=== PATIENT | male | born 1930 | race Caucasian/White ===

== ENCOUNTER 2017-02-01 18:31 | Outpatient (CLI) | payer MEDICARE, OTHER | END 2017-02-01 18:32 | disposition critical access hospital (66) | DX: R53.1 Weakness (principal) | CPT/HCPCS: A0425; A0429 ==

== ENCOUNTER 2017-02-01 18:55 | Emergency (ER) | payer MEDICARE, OTHER ==
[2017-02-01] MEDS ORDERED: AZITHROMYCIN 250 MG TABLET PO STA (21:12)
[2017-02-01] MEDS ORDERED: AZITHROMYCIN 250 MG TABLET PO ONE (21:19)
== END 2017-02-01 21:45 | disposition home or self-care (01) ==
DX: J18.9 Pneumonia, unspecified organism (principal); J32.0 Chronic maxillary sinusitis; R01.1 Cardiac murmur, unspecified; G20 Parkinson's disease; I10 Essential (primary) hypertension; Z86.73 Personal history of transient ischemic attack (TIA), and cerebral infarction without residual deficits; Z79.82 Long term (current) use of aspirin
CPT/HCPCS: 36415; 70450; 71020; 80053; 81003; 83690; 85025; 99284; A9270

== ENCOUNTER 2018-01-03 11:02 | Outpatient (CLI) | payer MEDICARE, OTHER | END 2018-01-03 11:03 | disposition critical access hospital (66) | LOC: EMS 11:02 | PROVIDERS: ATTEND Surgery | DX: R53.1 Weakness (principal) | CPT/HCPCS: A0425; A0429 ==

== ENCOUNTER 2018-01-03 11:21 | Emergency (ER) | payer MEDICARE, OTHER ==
--- NOTE | 2018-01-03 12:12 | ED Physician Documentation ---
PD HPI URI - Stated complaint Stated Complaint: WEAKNESS - Chief complaint Chief Complaint: General - History obtained from History obtained from: Patient, Family () - History of Present Illness Timing - onset: Today Timing duration: Hours Timing details: Gradual onset (he felt generally weaker when awoke today and unable to get himself out of bed. He says this will happen sometimes and then improves over an hour or two. Not feeling better through morning today. Has had senior care cough which is increased some for 1-2 weeks. No fevers. No chest pain. 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 No: Fever, Nasal congestion, Rhinorrhea, Swollen nodes, Chest pain, Dyspnea, NVD , Bilateral edema Contributing factors: No: Sick contact, Travel, COPD / asthma Improves by: Rest Similar symptoms before: No diagnosis Recently seen: Not recently seen Review of Systems Constitutional: reports: Chills, Fatigue. denies: Fever, Myalgias Nose: denies: Rhinorrhea / runny nose, Congestion Throat: denies: Sore throat Cardiac: denies: Chest pain / pressure, Palpitations, Pedal edema, Calf pain Respiratory: reports: Cough. denies: Dyspnea, Wheezing GI: denies: Abdominal Pain, Nausea, Vomiting, Diarrhea : denies: Dysuria, Frequency Skin: denies: Rash, Lesions Neurologic: reports: Generalized weakness. denies: Focal weakness, Numbness, Near syncope, Altered mental status, Headache Endocrine: reports: Weight loss. denies: Weight gain Immunocompromised: denies: Immunocompromised PD PAST MEDICAL HISTORY - Past Medical History Cardiovascular: Hypertension Respiratory: None Neuro: CVA Endocrine/Autoimmune: None GI: None : Benign prostate hypertrophy, Incontinence HEENT: None Psych: None Musculoskeletal: Osteoarthritis, Chronic back pain Derm: None - Past Surgical History Past Surgical History: No - Present Medications Home Medications: Ambulatory Orders Medication Instructions Recorded Confirmed Aspirin EC [Ecotrin] 325 mg PO DAILY 04/29/15 02/01/17 Azithromycin [Zithromax] 250 mg PO DAILY #4 tablet 02/01/17 Metoprolol Tartrate [Metoprolol 25 mg PO DAILY 02/01/17 02/01/17 Tartrate] Tamsulosin [Flomax] 0.4 mg PO DAILY 02/01/17 02/01/17 Dexamethasone [Decadron] 4 mg PO DAILY #5 tablet 01/03/18 Doxycycline Monohydrate 100 mg PO BID #14 tablet 01/03/18 - Allergies Allergies/Adverse Reactions: Allergies Allergy/AdvReac Type Severity Reaction Status Date / Time No Known Drug Allergies Allergy Verified 02/01/17 19:12 - Living Situation Living Situation: reports: With spouse/s.o. Living Arrangement: reports: At home - Social History Does the pt smoke?: No Smoking Status: Never smoker Does the pt drink ETOH?: No Does the pt have substance abuse?: No - Family History Family history: reports: Non contributory - Immunizations Immunizations are current?: Yes - POLST Patient has POLST: No PD ED PE NORMAL - Vitals Vital signs reviewed: Yes - General General: Alert and oriented X 3, No acute distress, Well developed/nourished, Other (generally frail appearance but bright and alert) - HEENT HEENT: Ears normal, Moist mucous membranes, Pharynx benign - Neck Neck: Supple, no meningeal sign, No adenopathy - Cardiac Cardiac: RRR, Other (murmur noted left chest, does not go to carotids. ) - Respiratory Respiratory: No: Clear bilaterally (slight congestion/wheezing noted left side. Wet cough intermittently. ) - Abdomen Abdomen: Soft, Non tender - Back Back: No CVA TTP - Derm Derm: Normal color, Warm and dry - Extremities Extremities: No tenderness to palpate, Normal ROM s pain, No edema, No calf tenderness / cord - Neuro Neuro: Alert and oriented X 3, it technician 2-12 intact, No motor deficit (mild shakiness noted with arms raising), No sensory deficit, Normal speech Eye Opening: Spontaneous Motor: Obeys Commands Verbal: Oriented GCS Score: 15 Results - Vitals Vitals: Vital Signs - 24 hr 01/03/18 01/03/18 01/03/18 11:25 13:05 15:50 Temperature 37.5 C Heart Rate 95 92 92 Respiratory 20 14 20 Rate Blood Pressure 166/74 H 151/82 H 151/78 H O2 Saturation 100 96 95 Oxygen O2 Source Room air - Labs Labs: Laboratory Tests 01/03/18 01/03/18 01/03/18 11:38 11:38 11:38 WBC 17.8 H RBC 4.47 L Hgb 13.3 L Hct 39.4 L MCV 88.2 MCH 29.6 MCHC 33.6 RDW 13.3 Plt Count 141 MPV 9.0 Neut # 16.5 H Lymph # 0.4 L [place] # 0.8 Eos # 0.0 Baso # 0.1 Absolute Nucleated RBC 0.00 Nucleated RBC % 0.0 Sodium 137 Potassium 4.1 Chloride 102 Carbon Dioxide 26 Anion Gap 9.0 BUN 21 H Creatinine 0.9 Estimated GFR (MDRD) 80 L Glucose 110 H Lactic Acid Calcium 9.1 Magnesium 1.8 Total Bilirubin 1.3 H AST 20 ALT < 10 L Alkaline Phosphatase 53 Troponin I 0.04 B-Natriuretic Peptide Total Protein 7.2 Albumin 4.1 Globulin 3.1 Albumin/Globulin Ratio 1.3 Lipase 12 L Urine Color Urine Clarity Urine pH Ur Specific [place] Urine Protein Urine Glucose (UA) Urine Ketones Urine Occult Blood Urine Nitrite Urine Bilirubin Urine Urobilinogen Ur Leukocyte Esterase Ur Microscopic Review Urine Culture Comments 01/03/18 01/03/18 01/03/18 11:38 11:38 11:38 WBC RBC Hgb Hct MCV MCH MCHC RDW Plt Count MPV Neut # Lymph # [place] # Eos # Baso # Absolute Nucleated RBC Nucleated RBC % Sodium Potassium Chloride Carbon Dioxide Anion Gap BUN Creatinine Estimated GFR (MDRD) Glucose Lactic Acid 1.0 Calcium Magnesium Total Bilirubin AST ALT Alkaline Phosphatase Troponin I B-Natriuretic Peptide 211 H Total Protein Albumin Globulin Albumin/Globulin Ratio Lipase Urine Color YELLOW Urine Clarity CLEAR Urine pH 6.5 Ur Specific [place] 1.020 Urine Protein NEGATIVE Urine Glucose (UA) NEGATIVE Urine Ketones TRACE Urine Occult Blood NEGATIVE Urine Nitrite NEGATIVE Urine Bilirubin NEGATIVE Urine Urobilinogen 0.2 (NORMAL) Ur Leukocyte Esterase NEGATIVE Ur Microscopic Review NOT INDICATED Urine Culture Comments NOT INDICATED - Rads (name of study) chest Radiology: Prelim report reviewed (lingular infiltrate c/w mild pneumonia) PD MEDICAL DECISION MAKING - ED course Complexity details: re-evaluated patient (he is able to ambulate with walker in ED without needing assistance. Presume he can be at home and he feels able to do usual mobility at this time. Sats are good, elevated WBC bu vitals otherwise good. Does not meet hospitalization criteria. ), considered differential, d/w patient, d/w family () Departure - Departure Disposition: 01 Home, Self Care Clinical Impression: Cough, Weakness Pneumonia Qualifiers: Pneumonia type: due to unspecified organism Laterality: left Lung location: unspecified part of lung Qualified Code(s): J18.9 - Pneumonia, unspecified organism Condition: Stable Record reviewed to determine appropriate education?: Yes Instructions: ED Pneumonia Adult Follow-Up: Angel Callejas MD [Primary Care Provider] - Prescriptions: Dexamethasone [Decadron] 4 mg PO DAILY #5 tablet Doxycycline Monohydrate 100 mg PO BID #14 tablet Comments: Drink lots of fluids. Regular medications. Your x-ray does show a possible small pneumonia on one side. Your white count is a little bit elevated to go along with infection. This could be making you feel weaker. Will give her some antibiotics and an anti-inflammatory doxycycline and Decadron as directed. Recheck if worsening symptoms or other problems develop. Discharge Date/Time: 01/03/18 18:08
[2018-01-03] MEDS ORDERED: SODIUM CHLORIDE 0.9% 1,000 ML IV ONE (12:29)
[2018-01-03 12:35] LABS: BASOPHILS # (AUTO) 0.1 10^3/uL (0.0-0.1); BASOPHILS % (AUTO) 0.4 %; EOSINOPHILS % (AUTO) 0.1 %; HGB - HEMOGLOBIN 13.3 g/dL (14.0-18.0); LYMPHOCYTES # (AUTO) 0.4 10^3/uL (1.5-3.5); LYMPHOCYTES % (AUTO) 2.5 %; MEAN CORPUSCULAR HEMOGLOBIN 29.6 pg (27.0-31.0); MEAN CORPUSCULAR HGB CONC 33.6 g/dL (32.0-36.0); MEAN CORPUSCULAR VOLUME 88.2 fL (80.0-94.0); MONOCYTES # (AUTO) 0.8 10^3/uL (0.0-1.0); MONOCYTES % (AUTO) 4.7 %; NEUTROPHILS # (AUTO) 16.5 10^3/uL (1.5-6.6); NEUTROPHILS % (AUTO) 92.3 %; PLT - PLATELET COUNT 141 10^3/uL (130-450); RED BLOOD COUNT 4.47 10^6/uL (4.70-6.10); RED CELL DISTRIBUTION WIDTH 13.3 % (12.0-15.0); WHITE BLOOD COUNT 17.8 x10^3/uL (4.8-10.8)
[2018-01-03 12:45] LABS: BILIRUBIN,URINE NEGATIVE (NEGATIVE); GLUCOSE, URINE (UA) NEGATIVE (NEGATIVE); KETONES,URINE (UA) TRACE mg/dL (NEGATIVE); LEUKOCYTE ESTERASE, URINE NEGATIVE (NEGATIVE); NITRITE,URINE NEGATIVE (NEGATIVE); OCCULT BLOOD,URINE NEGATIVE (NEGATIVE); PH,URINE 6.5 PH (5.0-7.5); PROTEIN,URINE NEGATIVE (NEGATIVE); UROBILINOGEN,URINE 0.2 (NORMAL) E.U./dL (NORMAL)
[2018-01-03 12:46] LABS: ALBUMIN 4.1 g/dL (3.2-5.5); ALBUMIN/GLOBULIN RATIO 1.3 (1.0-2.2); ALKALINE PHOSPHATASE 53 IU/L (42-121); ALT ALANINE AMINOTRANSFERASE < 10 IU/L (10-60); AST ASPARTATE AMINOTRANSFERASE 20 IU/L (10-42); BILIRUBIN,TOTAL 1.3 mg/dL (0.2-1.0); BUN - BLOOD UREA NITROGEN 21 mg/dL (6-20); CALCIUM 9.1 mg/dL (8.5-10.3); CARBON DIOXIDE - CO2 26 mmol/L (21-32); CHLORIDE 102 mmol/L (101-111); CLARITY,URINE CLEAR (CLEAR); CREATININE 0.9 mg/dL (0.6-1.2); GFR - MDRD 80 (>89); GLUCOSE 110 mg/dL (70-100); LIPASE 12 U/L (22-51); MAGNESIUM 1.8 mg/dL (1.7-2.8); SODIUM 137 mmol/L (135-145); TOTAL PROTEIN 7.2 g/dL (6.7-8.2)
--- NOTE | 2018-01-03 13:05 | XRAY Report ---
EXAM: CHEST RADIOGRAPHY EXAM DATE: 01/03/2018 12:46 PM. CLINICAL HISTORY: Cough and weakness. COMPARISON: 02/01/2017. TECHNIQUE: 2 views. FINDINGS: Lungs/Pleura: Mild lingular/left lower lobe opacity may reflect atelectasis or infiltrate. This is si milar to prior. No new pulmonary opacity. No pleural effusion or pneumothorax are evident. Mediastinum: Heart and mediastinal contours are unremarkable. Other: None. IMPRESSION: Mild lingular/left lower lobe opacity may reflect atelectasis or infiltrate. [facility] Referring Provider Line: [phone] SITE ID: [id number]
[2018-01-03] MEDS ORDERED: DEXAMETHASONE 10 MG/ML VIAL IVP STA (13:23)
[2018-01-03] MEDS ORDERED: DOXYCYCLINE 100 MG TABLET PO STA (13:23)
[2018-01-03 15:50] VITALS: BP 151/78
== END 2018-01-03 18:08 | disposition home or self-care (01) ==
LOC: EDUNIT# → ED 11:21
DX: R05 Cough (principal); R53.1 Weakness; J18.9 Pneumonia, unspecified organism; R94.31 Abnormal electrocardiogram [ECG] [EKG]; Z79.82 Long term (current) use of aspirin; Z86.73 Personal history of transient ischemic attack (TIA), and cerebral infarction without residual deficits
CPT/HCPCS: 36415; 71046; 80053; 81003; 83605; 83690; 83735; 83880; 84484; 85025; 93005; 96361; 96374; 99284; A9270; 81001; 87086

== ENCOUNTER 2018-02-21 09:35 | Outpatient (CLI) | payer MEDICARE, OTHER | END 2018-02-21 09:36 | disposition EMS.NT | LOC: EMS 09:35 | PROVIDERS: ATTEND Surgery | DX: S01.01XA Laceration without foreign body of scalp, initial encounter (principal); W01.0XXA Fall on same level from slipping, tripping and stumbling without subsequent striking against object, initial encounter; Y92.009 Unspecified place in unspecified non-institutional (private) residence as the place of occurrence of the external cause ==

== ENCOUNTER 2018-05-10 13:18 | Outpatient (CLI) | payer MEDICARE, OTHER ==
--- NOTE | 2018-05-10 14:53 | XRAY Report ---
Procedure Date: 05/10/2018 Accession Number: [id number] / [id number] Procedure: FL - Modified Barium Swallow W/SP CPT Code: FULL RESULT: EXAM: Modified Barium Swallow W/SP DATE: 05/10/2018 1:53 PM CLINICAL HISTORY: DYSPHAGIA, MOVEMENT DISORDER COMPARISON: None. TECHNIQUE: Under the direction of speech pathology, patient swallowed various consistencies of barium under lateral fluoroscopic observation of the neck. Fluoroscopic exposure time: 3 minutes 46 seconds. Number of fluoroscopic images: 0. 5 series of [place] fluoroscopy recorded. FINDINGS: Airway Protection: Hesitant epiglottic motion. No episodes of tracheal penetration or aspiration with all consistencies of barium. Other: None. Please also refer to full report from Speech Pathology. IMPRESSION: Hesitation without aspiration or penetration. [facility]
== END 2018-05-10 13:19 | disposition home or self-care (01) ==
LOC: DI 13:18
PROVIDERS: ATTEND Family Medicine
DX: R13.10 Dysphagia, unspecified (principal)
CPT/HCPCS: 74230; 92611; G8996; G8997; G8998

== ENCOUNTER 2018-05-24 15:20 | Outpatient (CLI) | payer MEDICARE, OTHER ==
[2018-05-24 18:59] LABS: BASOPHILS # (AUTO) 0.1 10^3/uL (0.0-0.1); BASOPHILS % (AUTO) 0.9 %; EOSINOPHILS # (AUTO) 0.2 10^3/uL (0.0-0.7); EOSINOPHILS % (AUTO) 2.1 %; HGB - HEMOGLOBIN 13.2 g/dL (14.0-18.0); LYMPHOCYTES # (AUTO) 1.3 10^3/uL (1.5-3.5); LYMPHOCYTES % (AUTO) 14.1 %; MEAN CORPUSCULAR HEMOGLOBIN 30.2 pg (27.0-31.0); MEAN CORPUSCULAR HGB CONC 32.4 g/dL (32.0-36.0); MEAN CORPUSCULAR VOLUME 93.4 fL (80.0-94.0); MEAN PLATELET VOLUME 9.3 fL (7.4-11.4); MONOCYTES # (AUTO) 0.8 10^3/uL (0.0-1.0); MONOCYTES % (AUTO) 8.8 %; NEUTROPHILS # (AUTO) 6.7 10^3/uL (1.5-6.6); NEUTROPHILS % (AUTO) 74.1 %; PLT - PLATELET COUNT 176 10^3/uL (130-450); RED BLOOD COUNT 4.36 10^6/uL (4.70-6.10); RED CELL DISTRIBUTION WIDTH 13.3 % (12.0-15.0); WHITE BLOOD COUNT 9.1 x10^3/uL (4.8-10.8)
[2018-05-24 19:14] LABS: ALBUMIN 3.9 g/dL (3.2-5.5); ALKALINE PHOSPHATASE 61 IU/L (42-121); ALT ALANINE AMINOTRANSFERASE 10 IU/L (10-60); AST ASPARTATE AMINOTRANSFERASE 15 IU/L (10-42); BILIRUBIN,TOTAL 1.3 mg/dL (0.2-1.0); BUN - BLOOD UREA NITROGEN 16 mg/dL (6-20); CALCIUM 9.2 mg/dL (8.5-10.3); CARBON DIOXIDE - CO2 30 mmol/L (21-32); CHLORIDE 101 mmol/L (101-111); CHOL/HDL RATIO 4.1 (<5.0); CHOLESTEROL 191 mg/dL; GFR - MDRD 71 (>89); GLUCOSE 93 mg/dL (70-100); HDL CHOLESTEROL 47 mg/dL; LDL CHOLESTEROL,CALCULATED 126 mg/dL; LDL/HDL RATIO 2.7 (<3.6); SODIUM 137 mmol/L (135-145); TOTAL PROTEIN 7.7 g/dL (6.7-8.2); VLDL CHOLESTEROL 18 mg/dL
== END 2018-05-24 15:21 ==
LOC: LAB.WCP 15:20
PROVIDERS: ATTEND Family Medicine
DX: I10 Essential (primary) hypertension (principal); I25.10 Atherosclerotic heart disease of native coronary artery without angina pectoris; I63.9 Cerebral infarction, unspecified; E78.5 Hyperlipidemia, unspecified
CPT/HCPCS: 36415; 80053; 80061; 83721; 84443; 85025

== ENCOUNTER 2018-08-04 11:39 | Outpatient (CLI) | payer MEDICARE, OTHER | END 2018-08-04 11:40 | disposition critical access hospital (66) | LOC: EMS 11:39 | PROVIDERS: ATTEND Surgery | DX: M25.512 Pain in left shoulder (principal); W19.XXXA Unspecified fall, initial encounter | CPT/HCPCS: A0425; A0429 ==

== ENCOUNTER 2018-08-04 12:04 | Emergency (ER) | payer MEDICARE, OTHER ==
--- NOTE | 2018-08-04 14:06 | ED Physician Documentation ---
PD HPI UPPER EXT INJURY - Stated complaint Stated Complaint: L SHOULDER PAIN / GLF 2 DAYS AGO - Chief complaint Chief Complaint: Trauma Ext - History obtained from History obtained from: Patient - History of Present Illness Location: Left, Clavicle, Shoulder Type of injury: Fall Where injury occurred: Home Timing - onset: Today Timing - details: Abrupt onset Worsened by: Moving, Palpating Associated symptoms: No: Weakness, Numbness, Swelling Contributing factors: No: Anticoagulated Similar symptoms before: Has not had sx before Recently seen: Not recently seen Review of Systems Cardiac: denies: Chest pain / pressure GI: denies: Abdominal Pain Skin: denies: Abrasion (s), Laceration (s) Musculoskeletal: reports: Joint pain (right shoulder) Neurologic: denies: Focal weakness, Numbness, Altered mental status, Headache, Head injury PD PAST MEDICAL HISTORY - Past Medical History Past Medical History: Yes Cardiovascular: Hypertension Respiratory: None Neuro: Parkinson's Endocrine/Autoimmune: None GI: None : Benign prostate hypertrophy, Incontinence HEENT: None Psych: None Musculoskeletal: Osteoarthritis, Chronic back pain Derm: None - Past Surgical History Past Surgical History: Yes HEENT: Cataracts - Present Medications Home Medications: Ambulatory Orders Medication Instructions Recorded Confirmed Aspirin EC [Ecotrin] 325 mg PO DAILY 04/29/15 02/01/17 Azithromycin [Zithromax] 250 mg PO DAILY #4 tablet 02/01/17 Metoprolol Tartrate 25 mg PO DAILY 02/01/17 02/01/17 Tamsulosin [Flomax] 0.4 mg PO DAILY 02/01/17 02/01/17 Dexamethasone [Decadron] 4 mg PO DAILY #5 tablet 01/03/18 Doxycycline Monohydrate 100 mg PO BID #14 tablet 01/03/18 - Allergies Allergies/Adverse Reactions: Allergies Allergy/AdvReac Type Severity Reaction Status Date / Time No Known Drug Allergies Allergy Verified 02/01/17 19:12 - Social History Does the pt smoke?: No Smoking Status: Never smoker Does the pt drink ETOH?: No Does the pt have substance abuse?: No - Immunizations Immunizations are current?: No - POLST Patient has POLST: No PD ED PE NORMAL - Vitals Vital signs reviewed: Yes - General General: Alert and oriented X 3, Well developed/nourished, Other (not much pain if arm held still. ) - HEENT HEENT: Atraumatic - Neck Neck: Supple, no meningeal sign, No bony TTP, No adenopathy - Cardiac Cardiac: RRR, No murmur - Respiratory Respiratory: Clear bilaterally - Abdomen Abdomen: Soft, Non tender - Derm Derm: Normal color, Warm and dry - Extremities Extremities: Other (right shoulder tender at proximal humerus. Clavicle not tender. No dislocation. ) - Neuro Neuro: Alert and oriented X 3, No motor deficit, No sensory deficit, Normal speech Results - Vitals Vitals: Vital Signs - 24 hr 08/04/18 08/04/18 12:09 13:00 Temperature 36.1 C L Heart Rate 99 91 Respiratory 16 Rate Blood Pressure 140/72 H 130/80 O2 Saturation 98 97 Oxygen O2 Source Room air - Rads (name of study) right shoulder Radiology: Prelim report reviewed (impacted humeral neck. ) PD MEDICAL DECISION MAKING - ED course Complexity details: reviewed results, re-evaluated patient (he is able to ambulate and get around one handed (does not use walker). ), considered differential, d/w patient Departure - Departure Disposition: 01 Home, Self Care Clinical Impression: Fall from slip, trip, or stumble Qualifiers: Encounter type: initial encounter Qualified Code(s): W01.0XXA - Fall on same level from slipping, tripping and stumbling without subsequent striking against object, initial encounter Fracture of neck of humerus Qualifiers: Encounter type: initial encounter Fracture type: closed Laterality: left Qualified Code(s): S42.212A - Unspecified displaced fracture of surgical neck of left humerus, initial encounter for closed fracture Condition: Stable Record reviewed to determine appropriate education?: Yes Instructions: ED Fx Shoulder Follow-Up: Angel Callejas MD [Primary Care Provider] - [facility] [Provider Group] Comments: Use the sling for the next 4-6 weeks while the fracture is healing. He can have it off temporarily for changing close and washing etc. Use it most of the time to help support the shoulder. Rest and sleep in the best position of comfort. Use your current pain medications use that you have at home. Add Tylenol if needed for pains. Follow-up with your primary care or orthopedics next week and call for an appointment to ensure its starting to heal up okay. He will have some swelling and likely bruising develop in the arm and even down towards the elbow area over the next few days possibly. Discharge Date/Time: 08/04/18 16:27
[2018-08-04] MEDS ORDERED: ACETAMINOPHEN 325 MG TABLET PO STA (14:49)
--- NOTE | 2018-08-04 15:13 | XRAY Report ---
Reason: FALL / SHOULDER PAIN Procedure Date: 08/04/2018 Accession Number: [id number] / [id number] Procedure: XR - Shoulder 2 View LT CPT Code: FULL RESULT: EXAM: LEFT SHOULDER RADIOGRAPHY EXAM DATE: 08/04/2018 02:52 PM. CLINICAL HISTORY: FALL / SHOULDER PAIN. COMPARISON: None. TECHNIQUE: 2 views. FINDINGS: Bones: Osteopenia. Impacted transverse fracture of humeral neck with apex anterior angulation, but nearly complete apposition of major fragments. Old rib fractures. Joints: Moderate degenerative changes. Anatomic alignment. Soft tissues: Clear visualized lung. IMPRESSION: Impacted humeral neck fracture. [facility]
[2018-08-04 16:27] VITALS: BP 176/104
== END 2018-08-04 16:27 | disposition home or self-care (01) ==
LOC: EDUNIT# → ED 12:04
DX: S42.212A Unspecified displaced fracture of surgical neck of left humerus, initial encounter for closed fracture (principal); W10.9XXA Fall (on) (from) unspecified stairs and steps, initial encounter; Y92.009 Unspecified place in unspecified non-institutional (private) residence as the place of occurrence of the external cause; I10 Essential (primary) hypertension; Z79.82 Long term (current) use of aspirin
CPT/HCPCS: 73030; 99283; A9270

== ENCOUNTER 2018-08-18 16:00 | Outpatient (CLI) | payer MEDICARE, OTHER ==
[2018-08-18 16:47] LABS: CALCIUM 8.5 mg/dL (8.5-10.3)
== END 2018-08-18 16:01 | disposition home or self-care (01) ==
LOC: LAB.R 16:00
DX: I10 Essential (primary) hypertension (principal)
CPT/HCPCS: 80048

== ENCOUNTER 2018-09-05 17:03 | Outpatient (CLI) | payer MEDICARE, OTHER ==
--- NOTE | 2018-09-05 17:49 | CONSULTATION NOTE ---
Palliative Care Consultation - Referral Referring Provider: Dr Hans Fernández PCP - Dr Callejas Time of Visit: 09/05/2018. 13:15 - 14:30 Referral setting: [facility] ([facility]) Referral Reason: Parkinson's disease; debility; advanced care planning - Information Sources Records reviewed: RN notes reviewed History/Review of Systems obtained from: Patient, Family, Nursing, Other (Graphic Design Intern) Exam limitations: No limitations - History of Present Illness Brief History of Present Illness: Thank you, Dr. Fernández, for asking the palliative care consult service to be involved in the care of your patient. I am asked to provide support regarding goal clarification and advanced care planning. 87-year-old male with Parkinson's disease and poor balance with history of frequent falls, with recent L humeral fracture, currently at [facility] for rehabilitation. 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 -August 03, he fell, sustaining a L humeral neck fracture, was taken to ED, and was released with a sling and ortho follow up. -August 07, he was brought to [facility] ED by due to weakness, decreased activity, poor PO intake which started shortly after the the GLF on 08/03. He was started on IVF and ceftriaxone. -August 08 he developed new atrial fibrillation with RVR. His HR increased to 126 and SBP dropped to the 80s. They had difficulty placing the Chatman, but eventually succeeded after 5 tries. He was given IVF and IV metoprolol for the tachycardia. -August 11 he was started on Bactrim DS BID for E coli UTI. -Acute paraphimosis was noted on the 08/11, they transferred him to [facility], where Dr Fernandez of Urology manually depressed the foreskin edema and was able to reduce the foreskin back over the glans. -Also severe MR was seen on TTE at [facility]. They discussed with and patient a referral to cardiology for consideration of valve repair or replacement, but he was very clear he was not interested in surgery. -August 14 he was transferred to [facility] for rehabilitation and half-way. This is where today's Palliative Care visit took place. His sp boston Juárez is also present. -He participates well with therapy and is making progress, walking 440 steps today, without walker or cane due to LUE sling. -He is accompanied by PT with belt. -Tomorrow is his first ortho visit since his L humerus fracture. -The Chatman catheter was removed about 2 weeks ago and he is maintaining adequate urination. -Facility reports he is losing weight, currently 118.8 lbs. Admission weight at [facility] was 60.6 kg (133 lb 9.6 oz), BMI 20.31. His thinks he was 51kg at [place] (112.2 lbs), likely in error. -He is clear that his intention and goal is that he wants to go home. His spouse is supportive insofar as she says, "Where else could he go." They do not have funds for assisted living or LTC. -She had many questions on what palliative care service costs and what it does, and what exactly will take place when patient is discharged back home, as far as equipment, when it will happen and where. -In addition to Palliative Care, [facility] SW and therapy will follow up and work with her as his discharge date grows closer. SW can hand off to Palliative Care SW as needed at discharge. Medical/Surgical History - Past Medical History Cardiovascular: reports: Hypertension Respiratory: reports: None Neuro: Parkinson's Neuro: reports: CVA Endocrine/Autoimmune: reports: None GI: reports: None : reports: Benign prostate hypertrophy, Incontinence HEENT: reports: None Psych: reports: None Musculoskeletal: reports: Osteoarthritis, Chronic back pain Derm: reports: None - Past Surgical History HEENT: reports: Cataracts - Substance History Dependence: Experiences withdrawal or developed tolerances: NONE Social History - Living Situation Living arrangement: At home Living Situation: With spouse/s.o. Support System: Patient lives with his at home. His is originally from [place]. Their son lives on the [place] of [place]. They report having no other family here or support in the area. Up to the present they have not had outside caregiver support. Spouse reports they do not have financial means to place patient in a facility. Dr Vimal Diaz, is the patient's neurologist, [facility]. Family History - Family History Family History Comment/Other: Family history non contributory Medications/Allergies - Medications Home Medications: Ambulatory Orders Medication Instructions Recorded Confirmed Metoprolol Tartrate 25 mg PO BID 02/01/17 02/01/17 Acetaminophen 650 mg PO Q6H PRN 09/05/18 09/05/18 Aspirin 81 mg PO DAILY 09/05/18 09/05/18 Atorvastatin Calcium 10 mg PO DAILY 09/05/18 09/05/18 Carbidopa/Levodopa [Carbidopa-Levo 1 tab PO TID 09/05/18 09/05/18 ER 25-100 Tab] Cholecalciferol (Vitamin D3) 1,000 unit PO DAILY 09/05/18 09/05/18 [Vitamin D3] Ferrous Gluconate 240 mg PO DAILY 09/05/18 09/05/18 HYDROcod/ACETAM 5/325 [Sanford 5/325] 1 tab PO BID 09/05/18 09/05/18 House Bowel Program 1 ea PO DAILY PRN 09/05/18 Polyethylene Glycol 3350 [Miralax] 17 gm PO DAILY PRN 09/05/18 09/05/18 Senna [Senokot] 8.6 mg PO DAILY 09/05/18 09/05/18 - Allergies Allergies/Adverse Reactions: Allergies Allergy/AdvReac Type Severity Reaction Status Date / Time No Known Drug Allergies Allergy Verified 02/01/17 19:12 Review of Systems - Constitutional Constitutional: reports: Poor appetite, Weight loss (Weight loss per [facility]: 118.8 lbs today; 119.2 lbs 08/29. 123.2 lbs 08/14. Admission weight at [facility] was 60.6 kg (133 lb 9.6 oz), BMI 20.31. Spouse reports he weighed 51 kg at [facility] (112.2 lbs)). denies: Fever, Chills - Eyes Eyes: reports: Corrective lenses - Ears, Nose & Throat Ears, Nose & Throat: reports: Hearing loss - Cardiovascular Cardiovascular: denies: Palpitations, Chest pain, Edema, Exertional dyspnea - Respiratory Respiratory: denies: SOB at rest - Gastrointestinal Gastrointestinal: reports: Constipation (bowel movements every other day) - Genitourinary Genitourinary: reports: Other (off the Chatman catheter). denies: Dysuria - Musculoskeletal Musculoskeletal: reports: Back pain (chronic, uses Sanford 5/325 BID routinely), Limited range of motion, Assistive devices (usually uses walker, unable at present due to UE in sling, so uses W/C. Can ambulate with belted assist from therapist.), Transfer issues (requires assistance) - Neurological Neurological: reports: General weakness, Abnormal gait, Other (Poor balance, frequent falls, dysphagia, but no cognitive deficits from Parkinson's) - Psychiatric Psychiatric: reports: Other (patient repeats that he wants to leave [facility]). denies: Depression - Other Findings Other Findings: Limited ROS Physical Exam - Vital Signs Temperature: 96.6 F Pulse Rate: 59 O2 Saturation: 99 Blood Pressure: 112/62 (arm cuff) - Physical Exam General Appearance: positive: No acute distress, Alert Eyes Bilateral: positive: No lid inflammation, Conjunctivae nml, No scleral icterus ENT: positive: No signs of dehydration Neck: positive: Trachea midline Cardiovascular: positive: No murmur, No gallop, Irregularly irregular Respiratory: positive: Chest non-tender, No respiratory distress, Diminished throughout Abdomen: positive: Non-tender, Soft, Nml bowel sounds Skin: positive: Pallor Extremities: positive: No pedal edema Neurologic/Psychiatric: positive: Oriented x3, Mood/affect nml, Slurred/abnml speech, Other (Resting tremor upper extremity.) Palliative Care - POLST Patient has POLST: Yes POLST Status: DNR, Comfort Measures Pain: Pain unchanged (chronic back pain. No pain in arm, spouse reports he has "high tolerance" for pain) Drowsiness/Sedation: None Dyspnea: None Anorexia: None (He reports good appetite), Weight loss Constipation: Comment (His baseline is bowel movements every other day) Performance Status: Ambulatory with belt support from therapist. Previously used walker but now uses w/c. Usually performs own ADLs, but now requires help because of LUE in sling - Palliative Care Discussion: Spouse was previously concerned about taking him home due to concern the level of his caregiving needs. Spouse, Marquita, is from [place] and expressed her dismay with the [employer] system and lack of affordable long-term health coverage in the [facility]. She cannot assume additional care responsibility for the patient due to her age and physical limitations: she is "done" in the afternoons, without energy. Presently her biggest concern is what will happen when he gets home and what support will they be provided in terms of equipment and assessing their needs. I did refer her to SW at [facility] for specifics and coordinated with PT. Palliative Care can provide [id number]-evaluations as needed when patient is discharged. Their current plan is to have him go home and hire caregiver help. I provided his spouse the list of agencies and also recommended [employer] for private caregivers and home care coordinator support groups. She said she was not interested in support groups. According to [facility] Orte[facility] notes by Ame Yepez MD, he had previously stated he was OK with intubation and respiratory support if needed. However, today patient repeatedly confirmed that he "wants nothing done," and so we updated his POLST to DNR and comfort care. His previous POLST, signed recently, was selective treatment. His spouse supports whatever he wants, states it is his decision to make, not hers. I provided the original, new POLST to his spouse and placed a copy of the new POLST in his CoW chart. Results - Lab Results Lab results reviewed: Yes Lab and Imaging Results: Most recent from 08/18/18: Na 135, K+ 4.6, Cl 100, BUN 35, Cr 1.0 GFR 71. Most recent from Zeeshan Ortega 08/11/18: WBC 10.5, Hgb 10.2, Hct 30.4, Plt 206,000, albumin 2.7, ALT less than 3, AST 16, alk phos 67, TSH 1.74 Impression and Recommendations - Palliative Care Impression: 87-year-old male with Parkinson's disease and poor balance with history of frequent falls, with recent L humeral fracture, currently at [facility] for rehabilitation. He is very upbeat and is making progress in therapy. The family's goal currently is have him discharged back home, is researching caregiver support. Palliative care will work with facility and family for smooth transition back home. is agreeable to ongoing Palliative Care support. Recommendations/Counseling Done: Parkinson's disease: Stable. On Sinemet, managed by neurologist Dr Diaz in [facility], last visit was spring or summer 2107. General weakness: He is in wheelchair due to LUE fracture, but able to ambulate with assist from belted therapist, walking up to 440 steps. PT is ongoing. Previous baseline was ambulatory with walker Fracture, L humeral neck: Patient denies pain. Uses Sanford 5/325 BID routinely for chronic back pain. His first ortho appointment is tomorrow, 09/06/18. HTN with afib: Stable, BP today 112/62. Continue Metoprolol tartrate 25mg BID. Failure to thrive: Steady weight loss, most recently at 118.8 lbs, though says he was 112 lbs at one hospital, [place]? Records at [facility] indicate he was 133 lbs at admission. MedPass 90mL TID for supplement. Behavior Therapist is following him at [facility]. Chronic back pain: On long-term opioid, Sanford 5/325 BID. Also has Tylenol 650mg q6h as needed. Denies pain. Constipation: He is at his baseline of having bowel movements every other day. Continue Senna 8.6mg daily and Miralax 17g PRN. Dysphagia: Followed by [facility] hemodialysis charge nurse. On dysphagia advanced texture and thin liquid consistency. Incontinence: Off Chatman; post-void residual as needed. Coccyx pressure ulcer: Clean with NS, pat dry, apply A&D ointment BID. Advanced care planning: New POLST was signed today: DNR and comfort care, previously he elected selective treatment. While at [facility], patient has refused cardiac surgery consult for severe mitral regurgitation. Goal of both patient and spouse is that he return home, be kept comfortable. Spouse is researching caregivers, Palliative Care provided list of agencies and provided information on private caregiving. [facility] Care [facility] and for smooth transition from facility back home. Follow up in 2 weeks or as needed. Time Spent: 75 minutes were spent with more than 50% of the time spent on counseling, education and coordination of care.
== END 2018-09-05 17:04 | disposition home or self-care (01) ==
LOC: PC 17:03
PROVIDERS: ATTEND Nurse Practitioner
DX: Z51.5 Encounter for palliative care (principal); G20 Parkinson's disease; R53.1 Weakness; I48.91 Unspecified atrial fibrillation; R62.7 Adult failure to thrive; G89.29 Other chronic pain; M54.9 Dorsalgia, unspecified; R13.10 Dysphagia, unspecified; Z86.73 Personal history of transient ischemic attack (TIA), and cerebral infarction without residual deficits; S42.292A Other displaced fracture of upper end of left humerus, initial encounter for closed fracture; I10 Essential (primary) hypertension; Z79.82 Long term (current) use of aspirin; Z91.81 History of falling; Z66 Do not resuscitate
CPT/HCPCS: 99306

== ENCOUNTER 2018-09-12 15:50 | Outpatient (CLI) | payer MEDICARE, OTHER ==
[2018-09-12 18:32] LABS: BASOPHILS # (AUTO) 0.1 10^3/uL (0.0-0.1); BASOPHILS % (AUTO) 1.1 %; EOSINOPHILS # (AUTO) 0.1 10^3/uL (0.0-0.7); EOSINOPHILS % (AUTO) 1.7 %; HGB - HEMOGLOBIN 11.7 g/dL (14.0-18.0); LYMPHOCYTES % (AUTO) 14.8 %; MEAN CORPUSCULAR HEMOGLOBIN 29.7 pg (27.0-31.0); MEAN CORPUSCULAR HGB CONC 32.3 g/dL (32.0-36.0); MEAN CORPUSCULAR VOLUME 91.9 fL (80.0-94.0); MEAN PLATELET VOLUME 9.1 fL (7.4-11.4); MONOCYTES # (AUTO) 0.6 10^3/uL (0.0-1.0); MONOCYTES % (AUTO) 9.1 %; NEUTROPHILS % (AUTO) 73.3 %; PLT - PLATELET COUNT 173 10^3/uL (130-450); RED BLOOD COUNT 3.93 10^6/uL (4.70-6.10); RED CELL DISTRIBUTION WIDTH 14.7 % (12.0-15.0); WHITE BLOOD COUNT 6.8 x10^3/uL (4.8-10.8)
[2018-09-12 18:39] LABS: ALBUMIN 3.2 g/dL (3.2-5.5); BILIRUBIN,TOTAL 0.9 mg/dL (0.2-1.0); CALCIUM 8.7 mg/dL (8.5-10.3); CREATININE 0.9 mg/dL (0.6-1.2); TOTAL PROTEIN 6.4 g/dL (6.7-8.2)
== END 2018-09-12 15:51 | disposition home or self-care (01) ==
LOC: LAB.R 15:50
DX: I10 Essential (primary) hypertension (principal); D64.9 Anemia, unspecified
CPT/HCPCS: 80053; 85025

== ENCOUNTER 2018-09-26 13:40 | Outpatient (CLI) | payer OTHER ==
--- NOTE | 2018-09-26 19:56 | CONSULTATION NOTE ---
Palliative Care Follow Up - Referral Referring Provider: Dr Hans Fernández. PCP - Dr Callejas Time of Visit: 09/26/2018. 13:40 - 14:00 Referral setting: Long Term Facility ([facility]) Referral Reason: Debility / LUE fracture - Information Sources Records reviewed: RN notes reviewed, Previous records reviewed History/Review of Systems obtained from: Patient, Family, Nursing, Other (hospital pharmacy director of SNF) Exam limitations: No limitations - History of Present Illness Update Brief HPI Update: 87-year-old male with Parkinson's disease and poor balance with history of frequent falls, currently at [facility] for rehabilitation of L humeral fracture. 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 -August 03 he fell fracturing his L humerus and is now at [facility] for rehabilitation. -The plan is to wait for discharge him home until after he can weight bear on his LUE. Therapy wants to continue working with him. -The 10/05 ortho appointment will hopefully clear him to start weight bearing on the LUE. -OT will be evaluating their home once they know his weight bearing status. -His spouse has arranged for a friend of the family to help out his spouse with caregiving duties once he is back home. -Palliative care will continue to support him and make home visits after he discharges home. -This plan was created at last week's family care conference, and today the patient reconfirmed that he agrees with the plan. -Patient continues to lose weight, in part because he is extremely particular, and also does not like the facility food. -He is now refusing MedPass. -He has refused certain medications and wants to take only those medications he took at home. He was refusing metoprolol until Dr Fernández pointed out that he used to take it at home. Social History - Living Situation Living arrangement: prison ([facility]) Living Situation: With caregiver(s) Support System: Patient's spouse, Marquita, visits frequently and will be his main caregiver when he discharges home. She is hiring a family friend to help out with caregiving. [place] the [place]. Medications/Allergies - Medications Home Medications: Ambulatory Orders Medication Instructions Recorded Confirmed Metoprolol Tartrate 25 mg PO BID 02/01/17 09/26/18 Acetaminophen 650 mg PO Q6H PRN 09/05/18 09/26/18 Carbidopa/Levodopa [Carbidopa-Levo 1 tab PO TID 09/05/18 09/26/18 ER 25-100 Tab] Ferrous Gluconate 240 mg PO DAILY 09/05/18 09/26/18 HYDROcod/ACETAM 5/325 [Quail 5/325] 1 tab PO BID PRN 09/05/18 09/26/18 House Bowel Program 1 ea PO DAILY PRN 09/05/18 09/26/18 Polyethylene Glycol 3350 [Miralax] 17 gm PO DAILY PRN 09/05/18 09/26/18 - Allergies Allergies/Adverse Reactions: Allergies Allergy/AdvReac Type Severity Reaction Status Date / Time No Known Drug Allergies Allergy Verified 02/01/17 19:12 Review of Systems - Constitutional Constitutional: reports: Poor appetite, Weight loss (114.4 lbs 09/21/18. 123.2 lbs 08/14/18. 5.7% decrease) - Ears, Nose & Throat Ears, Nose & Throat: reports: Hearing loss - Cardiovascular Cardiovascular: denies: Chest pain, Edema, Lightheadedness, Exertional dyspnea, Decr. exercise tolerance - Respiratory Respiratory: denies: SOB at rest, SOB with exertion - Gastrointestinal Gastrointestinal: denies: Constipation, Change in bowel habits - Genitourinary Genitourinary: denies: Dysuria, Frequency - Musculoskeletal Musculoskeletal: reports: Limited range of motion, Muscle weakness, Other (Pain in LUE from fracture) - Neurological Neurological: reports: Focal weakness (LUE), Pre-existing deficit (Parkinson's, balance issues), Abnormal gait, Slurred speech - Psychiatric Psychiatric: reports: Anxiety (still wants to leave [facility]ias, but has agreed to plan of care to wait at least until weight bearing is ok'd) - All Other Systems All Other Systems: reports: Reviewed and negative Physical Exam - Vital Signs Temperature: 96.5 F Pulse Rate: 77 O2 Saturation: 97 (room air) Blood Pressure: 131/60 (wrist cuff) - Physical Exam General Appearance: positive: No acute distress, Alert Eyes Bilateral: positive: No lid inflammation, Conjunctivae nml, No scleral icterus ENT: positive: No signs of dehydration Neck: positive: Trachea midline Cardiovascular: positive: Regular rate & rhythm, Systolic murmur (3/6) Respiratory: positive: Chest non-tender, No respiratory distress, Diminished throughout Skin: positive: No symptoms Extremities: positive: No pedal edema Neurologic/Psychiatric: positive: Oriented x3, Mood/affect nml, Unintelligible speech Palliative Care - POLST Patient has POLST: Yes POLST Status: DNR, Comfort Measures Pain: Location (pain in LUE) Anorexia: Moderate (4-6) Constipation: No, Managed - Palliative Care Discussion: His POLST is DNR and comfort care. His goal is to get home matthias, and he has agreed to wait for the ortho appointment 10/05 regarding weight bearing status. Plan will be revisited then. Impression and Recommendations - Palliative Care Impression: 87-year-old male with Parkinson's disease and poor balance with history of frequent falls, at [facility] for rehabilitation following fracture of L humerus. His weight bearing status will be determined at his 10/05/18 orthopedic appointment. The plan is to discharge home, and his will have a family friend assist her with caregiving. SNF OT will do a home evaluation prior to his discharge. Palliative care will continue to provide support and monitoring after his discharge home. Recommendations/Counseling Done: Parkinson's disease: Stable, continue Sinemet. Dr Diaz in [facility] manages his Parkinson's medications. General weakness: Improvement. Continue PT. Previous baseline was ambulatory with walker. Fracture, L humeral neck: Has follow up ortho appointment 10/05/18. Plan is to discharge home after he has weight bearing capacity. Tylenol as needed. HTN with afib: Stable, BP 131/60. Continue Metoprolol tartrate 25mg BID. Failure to thrive: Steady weight loss, now 114.4 lbs, 5.7% decrease since 08/14 (123 lbs). He was 133 lbs at [place] admission. He is now refusing MedPass. He does not like facility food and is very particular (e.g., the toast is not with the eggs, and he rejects the entire meal). Major Sales Associate is following him at [facility]. Chronic back pain: Quail 5/325 BID prn, he has been on this long-term. It has changed from routine to PRN.. Also has Tylenol 650mg q6h as needed. Denies pain. Constipation: He is at his baseline Continue Miralax 17g PRN. Senna routine was DC'd. Advanced care planning: POLST is DNR and comfort care. Care plan is to DC home after he can weight bear on LUE. Spouse will have help for caregiving duties from a family friend. Follow up after discharge home. Time Spent: 20 minutes was spent with more than 50% of the time spent on counseling, education, and coordination of care.
== END 2018-09-26 13:41 | disposition home or self-care (01) ==
LOC: PC 13:40
PROVIDERS: ATTEND Nurse Practitioner
DX: Z51.5 Encounter for palliative care (principal); G20 Parkinson's disease; R53.1 Weakness; R62.7 Adult failure to thrive; G89.29 Other chronic pain; M54.9 Dorsalgia, unspecified; K59.00 Constipation, unspecified; Z91.81 History of falling; Z66 Do not resuscitate
CPT/HCPCS: 99308

== ENCOUNTER 2018-10-31 15:22 | Outpatient (CLI) | payer MEDICARE, OTHER ==
--- NOTE | 2018-10-31 15:35 | CONSULTATION NOTE ---
Palliative Care Follow Up - Referral Referring Provider: Dr Callejas Time of Visit: 10/31/2018. 11:40 - 12:40 Referral setting: Home (Seen in home setting due to taxing and considerable effort required to leave the home due to frequent falls. Patient is homebound due to weakness and instability secondary to advanced Parkinson's disease.) Referral Reason: Parkinson's disease/poor balance - Information Sources Records reviewed: Previous records reviewed History/Review of Systems obtained from: Patient, Family Exam limitations: No limitations - History of Present Illness Update Brief HPI Update: 87-year-old male with Parkinson's disease and poor balance with history of frequent falls, August 03 he fell, fractureing his L humerus and was at [facility] for 2 months for rehabilitation. He is now back at home, with [facility] PT, OT and bath aid. 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 Speaking with spouse on the phone lst week, she reported he had fallen 3 times since he was DC'd from [facility]. He cannot get up and transfer by himself but he wasn't asking for helped. They saw his PCP, Dr Callejas, the week [place] whom, she told me, had told her she can't handle this alone, she needs caregiver help. However today at my first visit at their home, it appears the situation has significantly improved. The patient in fact was able to transfer independently from his recliner to standing and then walking with his recliner. He is housebound, and remains upstairs. His remains his sole caregiver, though they have friends she is able to call on for help, for instance, if he falls and she can't get him up. She says that he has not had any further falls since she and I spoke on the phone, and in fact it's getting better. However, he still moves too quickly and his balance is precarious. But she says that currently it's going well, and she is able to handle it at the current level. She does realize and understand that he will continue to decline, and at some point she will not be able to handle it alone any longer. She says that he would call for her to come upstairs, and when she did, he'd be asking her to chicken picker something from the table that he could have picked up himself. So she has told him he must do more things on his own, and they have been working on that. He is doing his own ADLs and getting himself ready. He ambulates to the bathroom. He is participating in [facility] PT and OT, and they come daily. He reports he does the exercises they assign him. He does report being tired of medical people being in their house every day, and wishes I would go. He does say it in a pleasant manner, not offensively. They don't know if he is losing weight, they don't have a scale at home. He weighed 118.8 lbs Sep 05. He was 133.9 lbs on admission to [facility]. Social History - Living Situation Living arrangement: At home Living Situation: With spouse/s.o. Support System: They have one son, who lives on the [place]. They have a few friends they can call on for help, for example, picking him up when he falls. Medications/Allergies - Medications Home Medications: Ambulatory Orders Medication Instructions Recorded Confirmed Metoprolol Tartrate 25 mg PO BID 02/01/17 10/31/18 Carbidopa/Levodopa [Carbidopa-Levo 1 tab PO TID 09/05/18 10/31/18 ER 25-100 Tab] HYDROcod/ACETAM 5/325 [[place] 5/325] 1 tab PO BID PRN 09/05/18 10/31/18 - Allergies Allergies/Adverse Reactions: Allergies Allergy/AdvReac Type Severity Reaction Status Date / Time No Known Drug Allergies Allergy Verified 02/01/17 19:12 Review of Systems - Constitutional Constitutional: reports: Weight loss (He doesn't know if he is continuing to lose weight. Last weight I have is 114.4 lbs 09/21/18. He was 133 lbs (60.6kg) when admitted to [facility] July 2018.), Other - Eyes Eyes: reports: Corrective lenses - Cardiovascular Cardiovascular: reports: Decr. exercise tolerance. denies: Palpitations, Chest pain, Edema - Respiratory Respiratory: denies: SOB at rest - Gastrointestinal Gastrointestinal: reports: Other (He enjoys eating at home, didn't like the food at [facility]). denies: Constipation - Genitourinary Genitourinary: denies: Incontinence - Musculoskeletal Musculoskeletal: reports: Back pain (chronic, on opioids), Assistive devices. denies: Transfer issues (self transfers from recliner to standing up/with walker) - Neurological Neurological: reports: Focal weakness (lower extremities), Pre-existing deficit, Abnormal gait (Parkinson's shuffle; poor balance) - Other Findings Other Findings: Limited ROS. Physical Exam - Vital Signs Temperature: 96.8 F Pulse Rate: 82 O2 Saturation: 98 (room air) Blood Pressure: 121/67 (wrist cuff) - Physical Exam General Appearance: positive: No acute distress, Alert Eyes Bilateral: positive: EOMI, No lid inflammation, Conjunctivae nml, No scleral icterus ENT: positive: No signs of dehydration Neck: positive: Trachea midline Cardiovascular: positive: Irregular, Systolic murmur (4/6) Respiratory: positive: No respiratory distress, Diminished throughout, Rhonchi (RLL) Abdomen: positive: Non-tender, Soft, Nml bowel sounds Skin: positive: Pallor Extremities: positive: Nml appearance, No pedal edema Neurologic/Psychiatric: positive: Oriented x3, Mood/affect nml Palliative Care - POLST Patient has POLST: Yes POLST Status: DNR, Comfort Measures Pain: Pain unchanged, Location (Chronic back pain, uses [place] BID), Comment (No other pain apart from his chronic back pain) Anorexia: Moderate (4-6) Constipation: Comment (Denies) Performance Status: Does own ADLs Ambulates with walker Does not leave the upstairs level; unable to navigate stairs Continues PT and OT therapy with [facility] - Palliative Care Discussion: Patient is vociferous and clear that he wants to remain at home, and he wants to at home. On the other hand, his Marquita is saying that she would not want him to at home. Her brother had experience with that (in [place], I believe) and he has advised her not to do that. So this subject can be returned to again over time, it's not a decision or a situation that needs decisions and action currently. We spent much of the time discussing caregiving and trying to clarify their situation. Marquita was disturbed when Ale, the occasional caregiver at [facility] had told Marquita that Medicaid could come after "her share" of their savings. Marquita is aghast at the cost of Assisted Living in the [facility], and also of caregiving. She wants to know costs. I did clarify that the palliative care SW can help with information, resources and pointing her in the right direction, but that she will need to do research and information gathering/pricing herself. Her greatest concern is financial and that the patient's half of their savings would last only about a year. So at this point, they are staying with their current set up of him remaining at home, and Marquita providing the care. It appears to be working so far because he is able to transfer himself, to handle some of his ADLs. Though he is limited to only the upstairs, and is dependent on Marquita for food, meals, shopping, etc., so far she is handling it. But she does recognize his condition will continue to deteriorate, and the time will come when her capacity to handle the care burden will be surpassed. They agree to have Palliative Care oversight periodically, and Palliative Care CABLE TELEVISION TECHNICIAN will follow up with them toward the end of November, or they can call before then, as needed. They go through his PCP to get any scripts filled, and the patient doesn't like having medication staff in his home all the time. Palliative Care SW has been referred and will follow up with Marquita. Impression and Recommendations - Palliative Care Impression: 87-year-old male with Parkinson's disease and history of frequent falls, back at home now after fracturing his L humerus, and rehab at [facility]. He receives [facility] PT and OT services at home. His is his sole caregiver. He remains at high risk for falls due to being ambulatory with walker, but with poor balance, unsteady gait and impulsiveness. Palliative care will continue to provide support and monitoring. Recommendations/Counseling Done: Parkinson's disease: Stable, at baseline, on Sinemet 25/[address] Diaz, of [facility], manages his Parkinson's medications. General weakness, poor balance: Improved, able to self transfer, and perform ADLs. Continue [facility] PT and OT. Fracture, L humeral neck: Resolving, able to perform ADLs. Continued pain with LUE elevation, has [place] BID. HTN with afib: Irregular HR. BP today 121/67. Continue Metoprolol tartrate 25mg BID. Failure to thrive: Unknown if he continues to lose weight; they have no scale at home. He enjoys food at home more than [facility]'s meals. His ost recent weight was 114.4 lbs, 09/21/18. He had been 133 lbs at [place] admission in Jul 2018. Will start arm circumference measurements at next visit. Chronic back pain: Stable, has used [place] 5/325 BID for years. He doesn't use Tylenol. Denies pain. Constipation, opioid-induced: Denies. Uses no bowel medications; it's controlled by diet and natural fiber intake. Advance care planning: POLST is DNR and comfort care. patient's goal is to remain in his home; his wish is to at home. Spouse is not supportive of that, influenced by her brother who had a spouse in the home with Hospice. Will continue the discussion over time. Palliative Care SW will contact spouse to provide resource support and evaluation regarding caregiver and alternate living arrangements (LONG TERM, etc). They agree to continue to accept Palliative Care oversight periodically. Palliative Care CABLE TELEVISION TECHNICIAN will follow up with them toward the end of November, or they can call before then, as needed. The PCP fulfills his scripts, plus the patient doesn't like having medication staff in his home "all the time." Palliative Care SW has been referred and will follow up with Marquita for resource and informational support. Marquita will do research into ALFs, and costs of other alternative residential options. Time Spent: 60 minutes were spent with more than 50% of the time spent on counseling, education, anticipatory guidance, and coordination of care.
== END 2018-10-31 15:23 | disposition home or self-care (01) ==
LOC: PC 15:22
PROVIDERS: ATTEND Nurse Practitioner
DX: Z51.5 Encounter for palliative care (principal); G20 Parkinson's disease; F02.80 Dementia in other diseases classified elsewhere, unspecified severity, without behavioral disturbance, psychotic disturbance, mood disturbance, and anxiety; I10 Essential (primary) hypertension; I48.91 Unspecified atrial fibrillation; M54.9 Dorsalgia, unspecified; G89.29 Other chronic pain; R62.7 Adult failure to thrive; Z79.891 Long term (current) use of opiate analgesic; Z91.81 History of falling; Z66 Do not resuscitate; Z79.899 Other long term (current) drug therapy; Z87.81 Personal history of (healed) traumatic fracture
CPT/HCPCS: 99350

== ENCOUNTER 2019-01-26 16:16 | Outpatient (CLI) | payer MEDICARE, OTHER | END 2019-01-26 16:17 | disposition short-term general hospital (02) | LOC: EMS 16:16 | PROVIDERS: ATTEND Surgery | DX: R06.00 Dyspnea, unspecified (principal); R53.1 Weakness; R63.8 Other symptoms and signs concerning food and fluid intake | CPT/HCPCS: A0425; A0427; A0888 ==

== ENCOUNTER 2019-01-28 14:31 | Outpatient (CLI) | payer SELFPAY | END 2019-01-28 14:32 | disposition EMS.NT | LOC: EMS 14:31 | PROVIDERS: ATTEND Surgery ==